=== PATIENT | male | born 1970 | race Caucasian/White ===

== ENCOUNTER 2018-11-04 16:15 | Emergency (ER) | payer SELFPAY ==
[~2018-11-04] VITALS: Ht 175.3 cm; Wt 80.3 kg
[2018-11-04 16:22] VITALS: Ht 175.3 cm; Wt 80.3 kg
[2018-11-04] MEDS ORDERED: BACITRACIN 0.9 GM OINT TOP ONE (20:00)
[2018-11-04] MEDS ORDERED: LIDOCAINE 4% CR TOP ONE (20:00)
[2018-11-04] MEDS ORDERED: LIDOCAINE 1% (MDV) 20 ML INJ SC ONE (21:00)
[2018-11-04] MEDS ORDERED: CLIN300C10 PO (21:25)
[2018-11-04 21:36] VITALS: BP 128/78; PULSE 76; RESP 16
--- NOTE | 2018-11-05 12:52 | ERD ---
ER Documentation Chief Complaint Chief Complaint Complains of left foot/toe laceration since today HPI This is a 48-year-old male who presents with complaint of laceration to the fifth left toe since today. States that he was moving a metal mattress frame and then it fell on his toe causing the laceration. Denies any current pain. Denies numbness, tingling, impaired range of motion. Denies any current treatments. Does state that he received his last Tdap 2 years ago. Allergic to penicillin. Denies medical history. ROS All systems reviewed and are negative except as per history of present illness. Medications Home Meds Active Scripts Clindamycin Hcl* (Clindamycin Hcl*) 300 Mg Capsule, 300 MG PO TID for laceration for 7 Days, CAP Prov:QASIM PATEL 11/04/18 Allergies Allergies: Coded Allergies: Penicillins (Verified Allergy, Unknown, 11/04/18) PMhx/Soc Medical and Surgical Hx: pt denies Medical Hx, pt denies Surgical Hx Hx Alcohol Use: Yes (3-6 beers per day) Hx Substance Use: Yes (marijuana) Hx Tobacco Use: Yes (sometimes) Smoking Status: Current some day smoker FmHx Family History: No diabetes, No coronary disease, No other Physical Exam Vitals Vital Signs Date Temp Pulse Resp B/P (MAP) Pulse Ox O2 O2 Flow FiO2 Time Delivery Rate 11/04/18 98.8 76 16 128/78 98 Room Air 21:36 (95) 11/04/18 99.8 97 20 171/104 98 16:22 (126) Physical Exam Const: No acute distress Head: Atraumatic Eyes: Normal Conjunctiva ENT: Normal External Ears, Nose and Mouth Resp: Clear to auscultation bilaterally Cardio: Regular rate and rhythm, no murmurs Ext: Approximately 3 cm full-thickness laceration noted to the medial aspect of fifth left toe. Sensation and range of motion are intact. There is no evidence of neurovascular compromise. There is no evidence of tendon injury or retained foreign body. There is minimal edema with no erythema. There is no discharge or sign of infection noted. The bone is unable to be visualized. No evidence of open fracture or invasion of joint space. Neur: Awake and alert Psych: Normal Mood and Affect Results 24 hrs Current Medications Medications Dose Sig/Hermila Start Time Status Last (Trade) Ordered Route PRN Stop Time Admin Dose Reason Admin Lidocaine 1 applic ONCE ONCE 11/04/18 DC (Lmx 4% Plus) TOP 20:00 11/04/18 20:01 Bacitracin 1 applic ONCE ONCE 11/04/18 DC (Bacitracin TOP 20:00 Oint (Ud)) 11/04/18 20:01 Lidocaine 20 ml ONCE ONCE 11/04/18 DC (Xylocaine SC 21:00 1% (Mdv) 20 11/04/18 21:01 ml) Procedures/MDM DIAGNOSTIC IMAGING REPORT Patient: NIKKI CATHERINE : 1970 Age: 48 Sex: M MR #: [id number] DOS: 11/04/181945 Ordering MD: QASIM PATEL Location: FT Room/Bed: PROCEDURE: XR toe CLINICAL INDICATION: Trauma, pain TECHNIQUE: 3 portable views of the left fifth toe were obtained. COMPARISON: None. FINDINGS: Osseous structures are intact. There is no acute fracture. There is normal mineralization and alignment. IMPRESSION: 1. No acute osseous abnormality. RPTAT:HAJM Physician Lou Date Time Electronically viewed and signed by Physician Lou on 11/04/2018 20:07 RM/ CC: QASIM PATEL [id number] Laceration Repair by me: Anesthesia: 1% lidocaine locally Location: Lateral aspect of fifth left toe Tendon/Joint/Nerves: No injury Foreign body: None detected after copious irrigation and exploration Technique: Simple Interrupted Sutures Complexity: No subcutaneous sutures/mucosal repair/edge excision Post Closure Length: 3 cm Patient's bleeding was easily controlled in the department and there is no indication of anemia. No evidence of compartment syndrome, neurologic injury, vascular injury, open joint, tendon laceration, or foreign body. Patient is appropriate for outpatient follow up. 48 hour wound check. Scar minimization instructions given. This is a 48-year-old male who presents with complaint of laceration to the fifth left toe since today. States that he was moving a metal mattress frame and then it fell on his toe causing the laceration. Denies any current pain. Denies numbness, tingling, impaired range of motion. Denies any current treatments. Does state that he received his last Tdap 2 years ago. Allergic to penicillin. Denies medical history. X-ray was taken to the foot results within normal limits. Laceration was repaired without complication using the above procedure. Due to the proximity to the joint, as well as the location being on the foot and the patient being unable to commit for wound check in 2 days, decision was made to give clindamycin for antibiotic prophylaxis (penicillin causes angioedema). Patient was also given ortho shoe and the toe was morris taped to the 4th toe. Splint Assessment: Neurovascularly intact post splint placement with good fit. Low suspicion for neurovascular compromise, open fracture, infection, compartment syndrome, or any other emergent condition. Patient discharged with strict ER precautions. Patient advised to follow up with PMD and return in 48 hours for wound check. All questions answered at discharge. Departure Diagnosis: Primary Impression: Laceration Condition: Stable Patient Instructions: Laceration, Foot Referrals: [facility] YOU HAVE RECEIVED A MEDICAL SCREENING EXAM AND THE RESULTS INDICATE THAT YOU DO NOT HAVE A CONDITION THAT REQUIRES URGENT TREATMENT IN THE EMERGENCY DEPARTMENT. FURTHER EVALUATION AND TREATMENT OF YOUR CONDITION CAN WAIT UNTIL YOU ARE SEEN IN YOUR DOCTORS OFFICE WITHIN THE NEXT 1-2 DAYS. IT IS YOUR RESPONSIBILITY TO MAKE AN APPOINTMENT FOR FOLOW-UP CARE. IF YOU HAVE A PRIMARY DOCTOR --you should call your primary doctor and schedule an appointment IF YOU DO NOT HAVE A PRIMARY DOCTOR YOU CAN CALL OUR PHYSICIAN REFERRAL HOTLINE AT IF YOU CAN NOT AFFORD TO SEE A PHYSICIAN YOU CAN CHOSE FROM THE FOLLOWING [facility] [address] [facility]. [facility] [address] [facility]. [facility] [address] [facility]. [facility] [address] [facility]. [facility] [address] [facility]. [facility]. [address] Additional Instructions: Return to this facility in 2 DAYS for a follow-up exam.Return sooner if your condition worsens. QASIM PATEL Nov 05, 2018 12:52
== END 2018-11-04 21:36 | disposition home or self-care (01) ==
LOC: FTE 16:15
DX: S91.115A Laceration without foreign body of left lesser toe(s) without damage to nail, initial encounter (principal); F17.210 Nicotine dependence, cigarettes, uncomplicated; W26.8XXA Contact with other sharp object(s), not elsewhere classified, initial encounter; Y92.9 Unspecified place or not applicable
CPT/HCPCS: 73660